=== PATIENT | female | born 1945 | race Caucasian/White ===

== ENCOUNTER 2024-02-13 06:24 | Day surgery (SDC) | payer OTHER, SELFPAY ==
[2024-02-13 10:02] VITALS: BP 161/91
[2024-02-13 10:10] VITALS: BMI 28.1
[2024-02-13 10:12] VITALS: BMI 28.1
[2024-02-13 12:18] VITALS: BP 123/69
[2024-02-13 12:30] VITALS: BP 138/70
[2024-02-13 12:40] VITALS: BP 153/79
== END 2024-02-13 13:05 | disposition home or self-care (01) ==
LOC: SDS 06:24
PROVIDERS: ATTENDING PHYSICIAN Internal Medicine Gastroenterology; FAMILY PHYSICIAN Family Medicine
DX: C25.1 Malignant neoplasm of body of pancreas (principal); K31.7 Polyp of stomach and duodenum; K86.9 Disease of pancreas, unspecified; R93.3 Abnormal findings on diagnostic imaging of other parts of digestive tract
CPT/HCPCS: 43238; 88172; 88173; 88305; 88177